=== PATIENT | male | born 1990 | race Caucasian/White ===

== ENCOUNTER 2018-12-29 13:33 | Emergency (ER) | payer MEDICAID, OTHER ==
--- NOTE | 2018-12-29 15:06 | EDPHY ---
H & P Stated Complaint: headache x 1 week with pain down neck and back, fatigue Time Seen by Provider: 12/29/18 15:06 HPI/ROS: HPI: This is a 28-year-old male who presents with Chief Complaint: headache x 1 week with pain down neck and back, fatigue Location: Base of neck, bandlike Quality: Headache Duration: 1 week Signs and Symptoms: no fever, no nausea, no vomiting, no photophobia, no noise sensitivity, no neck stiffness, no ear pain, no tinnitus, no nasal congestion, no sinus pressure, no weakness, no radiation, no aura, no sinus pressure, no nasal congestion, no tinnitus, no ear pain, no vision changes Timing: Acute, waxes and wane Severity: Vekl-dw-[id number] Context: Patient presents with base of neck and upper bilateral shoulder achiness that wraps around both temples for the last 1 week. He reports that he has been sleeping on a couch. He does have a history of migraines but this feels different. He denies that this is the worst headache of his life and has no thunderclap symptoms. He has tried no [id number] medications. He has no primary care provider. He denies any heavy lifting or injury. He denies any stress. Modifying Factors: None Comment: ROS: A comprehensive 10 system review of systems is otherwise negative aside from elements mentioned in the history of present illness. MEDICAL/SURGICAL/SOCIAL HISTORY: Medical history: gall stones, asthma, MIGRAINES, bipolar depression, anxiety, PTSD Surgical history: Denies Social history: Current every day smoker. Family history noncontributory. CONSTITUTIONAL: Extremely well-appearing young adult white male, awake and alert, no obvious distress HEENT: Atraumatic and normocephalic, PERRL, EOMI. Nares patent; no rhinorrhea; no nasal mucosal edema. Tympanic membranes clear. Oropharynx clear, no exudate and moist pink mucosa. Airway patent. No lymphadenopathy. NECK: supple, no midline tenderness, flexion 45 degrees, extension 45 degrees, right and left lateral flexion 45 degrees. Reproducible trigger-point tenderness over bilateral cervical paraspinous muscles and trapezius muscles down into deltoids. Cardiovascular: Normal S1/S2, regular rate, regular rhythm, without murmur rub or gallop. PULMONARY/CHEST: Symmetrical and nontender. Clear to auscultation bilaterally. Good air movement. No accessory muscle usage. ABDOMEN: Soft, nondistended, nontender, no rebound, no guarding, no peritoneal signs, no masses or organomegaly. No CVAT. EXTREMITIES: 2/2 pulses, strength 5/5, no deformities, no clubbing, no cyanosis or edema. NEUROLOGICAL: no focal neuro deficits. GCS 15. Cranial nerves 2-12 grossly intact. Speech normal. SKIN: Warm and dry, no erythema. no rash. Good capillary refill. Source: Patient Exam Limitations: No limitations - Medical/Surgical History Hx Asthma: Yes Hx Chronic Respiratory Disease: No Hx Diabetes: No Hx Cardiac Disease: No Hx Renal Disease: No Hx Cirrhosis: No Hx Alcoholism: No Hx HIV/AIDS: No Hx Splenectomy or Spleen Trauma: No Other PMH: pmh- gall stones, asthma, MIGRAINES, bipolar depression, anxiety, PTSD - Social History Smoking Status: Current every day smoker Constitutional: Initial Vital Signs Temperature (C) 36.7 C 12/29/18 13:44 Heart Rate 72 12/29/18 13:44 Respiratory Rate 16 12/29/18 13:44 Blood Pressure 99/67 L 12/29/18 13:44 O2 Sat (%) 97 12/29/18 13:44 O2 Delivery Mode Room Air Allergies/Adverse Reactions: bee pollen Allergy (Verified 08/27/16 10:03) venom-honey bee [bee venom (honey bee)] Allergy (Verified 08/27/16 10:03) CATS Allergy (Uncoded 10/21/15 08:45) Home Medications: Medication Instructions Recorded NK [No Known Home Meds] 08/27/16 Medical Decision Making ED Course/Re-evaluation: Vital signs reviewed and stable upon arrival. Patient has been sleeping on the couch and has reproducible trigger-point paraspinous muscle and trapezius muscle tenderness. No LOC and no neurological deficits to warrant imaging in emergency room. Patient given p. O. Tylenol felt mg, p.o. Ibuprofen 600 mg, Lidoderm patch and p.o. Valium 5 mg with adequate pain relief. [facility]. Advised supportive care. This patient was seen under the supervision of my secondary supervising physician. I evaluated care for this patient independently. Differential Diagnosis: Headache including but not limited to subarachnoid hemorrhage, migraine headache , tension headache and infectious causes such as meningitis, pharyngitis and sinusitis. - Data Points Medications Given: Miscellaneous Information (Patch Removal) 1 ea TD DAILY21 ADRIANNE Stop: 06/27/19 20:59 Last Admin: 12/29/18 15:35 Dose: Not Given Discontinued Medications Acetaminophen (Tylenol) 1,000 mg PO EDNOW ONE Stop: 12/29/18 15:28 Last Admin: 12/29/18 15:34 Dose: 1,000 mg Diazepam (Valium) 5 mg PO EDNOW ONE Stop: 12/29/18 15:28 Last Admin: 12/29/18 15:34 Dose: 5 mg Ibuprofen (Motrin) 600 mg PO EDNOW ONE Stop: 12/29/18 15:28 Last Admin: 12/29/18 15:34 Dose: 600 mg Miscellaneous Medication (Icy Hot Lidocaine/Menthol 4%/1% Patch) 1 patch TD EDNOW ONE Stop: 12/29/18 15:28 Last Admin: 12/29/18 15:33 Dose: 1 patch Departure - Departure Disposition: Home, Routine, Self-Care Clinical Impression: Tension-type headache Qualifiers: Headache chronicity pattern: acute headache Intractability: not intractable Qualified Code(s): G44.209 - Tension-type headache, unspecified, not intractable Condition: Good Instructions: Tension Headache (ED) Additional Instructions: Take Tylenol 650 mg every 4 hours and/or Ibuprofen 600 mg every 8 hours with food as needed for pain. Apply moist heat or heating pad for 30 minutes at a time; 2-3 times per day for the next 1-2 days. Consume a minimum of 8-10 glasses of water or electrolyte fluid replacement drinks that include Gatorade, Powerade, Pedialyte. You would benefit from a massage of your neck and upper back muscles. Please establish care at [facility]. Referrals: [facility],. [Clinic] - As per Instructions
[2018-12-29] MEDS ORDERED: DIAZEPAM 5 MG TAB PO ONE (15:27)
[2018-12-29] MEDS ORDERED: IBUPROFEN 600 MG TAB PO ONE (15:27)
[2018-12-29] MEDS ORDERED: LIDOCAINE 4%/MENTHOL 1% PATCH TD ONE (15:27)
[2018-12-29] MEDS ORDERED: ACETAMINOPHEN 500 MG TAB PO ONE (15:27)
[2018-12-29 16:00] VITALS: BP 102/63
[2018-12-29] MEDS ORDERED: PATCH REMOVAL 1 EA PATCH TD SCH (21:00)
== END 2018-12-29 16:00 | disposition home or self-care (01) ==
DX: G44.209 Tension-type headache, unspecified, not intractable (principal); F41.9 Anxiety disorder, unspecified